=== PATIENT | female | born 1965 | race Two or more races ===

== ENCOUNTER 2019-12-29 18:07 | Emergency (ER) | payer BC, OTHER ==
[~2019-12-29] VITALS: Ht 152.4 cm; Wt 74.4 kg
[2019-12-29 18:15] VITALS: BP 173/77
[2019-12-29] MEDS ORDERED: SODIUM CHLORIDE 0.9% 1,000ML IVBOLUS ONE (20:00)
[2019-12-29] MEDS ORDERED: SODIUM CHLORIDE FLUSH 10ML SYR IVF ONE (20:00)
[2019-12-29] MEDS ORDERED: MECLIZINE CHEWABLE 25 MG TAB PO ONE (20:00)
[2019-12-29] MEDS ORDERED: PLEASE ENTER ALLERGIES MC SCH (20:00)
[2019-12-29] MEDS ORDERED: ONDANSETRON ODT 4 MG PO ONE (20:00)
[2019-12-29] MEDS ORDERED: ONDANSETRON ODT 4 MG ONE (20:06)
[2019-12-29] MEDS ORDERED: MECLIZINE CHEWABLE 25 MG TAB ONE (20:07)
[2019-12-29 20:13] LABS: BASOPHILS % (AUTO) 0 % (0-1); EOSINOPHILS % (AUTO) 0 % (1-7); LYMPHOCYTES # (AUTO) 1.76 x10^3/uL (1-3.4); LYMPHOCYTES % (AUTO) 13 % (22-44); MD NO; MEAN CORPUSCULAR HEMOGLOBIN 27.2 pg (27.0-34.8); MEAN CORPUSCULAR HGB CONC 32.9 g/dL (32.4-35.8); MEAN CORPUSCULAR VOLUME 82.8 fL (80-100); MONOCYTES % (AUTO) 4 % (2-9); NEUTROPHILS # (AUTO) 11.36 x10^3/uL (1.8-6.8); NEUTROPHILS % (AUTO) 83 % (42-75); PLATELET COUNT 489 x10^3/uL (130-400); RED BLOOD COUNT 5.06 x10^6/uL (3.82-5.3); RED CELL DISTRIBUTION WIDTH 14.3 % (9.6-15.2)
[2019-12-29 20:20] LABS: ALBUMIN 3.9 g/dL (3.4-5.0); ANION GAP 8 mmol/L (5-15); CALCIUM 8.9 mg/dL (8.5-10.1); CHLORIDE 105 mmol/L (98-107); CREATININE 0.76 mg/dL (0.55-1.02)
[2019-12-29] MEDS ORDERED: POTASSIUM CHLORIDE 20 MEQ TAB.ER.PRT PO ONE (21:00)
[2019-12-29] MEDS ORDERED: POTASSIUM CHLORIDE 20 MEQ TAB.ER.PRT ONE (21:14)
== END 2019-12-29 21:42 | disposition home or self-care (01) ==
LOC: ED 21:30
DX: R42 Dizziness and giddiness (principal)
CPT/HCPCS: 36415; 80048; 82040; 85025; 93005; 96360; 99284; J7030; J7512; Q0162